=== PATIENT | female | born 1990 | race Caucasian/White ===

== ENCOUNTER 2021-07-02 17:53 | Emergency (ER) | payer SELFPAY ==
[~2021-07-02] VITALS: Ht 160 cm; Wt 86.0 kg
[2021-07-02] MEDS ORDERED: IBUP-2028 MT (20:08)
[2021-07-02] MEDS ORDERED: IBUPROFEN 600MG TABLET PO ONE (20:15)
[2021-07-02 20:29] VITALS: BP 119/69
== END 2021-07-02 20:31 | disposition home or self-care (01) ==
LOC: ER 17:53
DX: S16.1XXA Strain of muscle, fascia and tendon at neck level, initial encounter (principal); Z79.899 Other long term (current) drug therapy; V49.88XA Car occupant (driver) (passenger) injured in other specified transport accidents, initial encounter; Y93.89 Activity, other specified; Y92.89 Other specified places as the place of occurrence of the external cause; Y99.8 Other external cause status
CPT/HCPCS: 99283